=== PATIENT | female | born 1950 | race Caucasian/White ===

== ENCOUNTER 2024-09-06 12:07 | Emergency (ER) | payer OTHER ==
[2024-09-06 12:29] LABS: BASOPHILS ABSOLUTE AUTO 0.04 K/uL (0.00-0.10); BASOPHILS PERCENT AUTO 0.5 % (0.1-1.3); EOSINOPHILS ABSOLUTE AUTO 0.22 K/uL (0.00-0.40); EOSINOPHILS PERCENT AUTO 2.7 % (0.0-5.4); IMMATURE GRAN ABSOLUTE AUTO 0.03 K/uL (0.00-0.23); IMMATURE GRAN PERCENT AUTO 0.4 % (0.0-0.7); LYMPHOCYTES ABSOLUTE AUTO 1.61 K/uL (0.8-3.3); LYMPHOCYTES PERCENT AUTO 20.0 % (11.4-47.7); MONOCYTES ABSOLUTE AUTO 0.68 K/uL (0.20-0.90); MONOCYTES PERCENT AUTO 8.5 % (3.3-12.6); NEUTROPHILS ABSOLUTE AUTO 5.45 K/uL (1.0-7.6); NEUTROPHILS PERCENT AUTO 67.9 % (40.0-78.1); PLATELET COUNT,PLT 210 K/uL (130-375); RED BLOOD CELL COUNT 4.84 M/uL (3.77-5.24); WHITE BLOOD CELL COUNT,WBC 8.0 K/uL (3.2-11.0)
[2024-09-06 12:38] LABS: APPEARANCE,URINE CLOUDY (CLEAR); GLUCOSE,URINE NEGATIVE (NEGATIVE); OCCULT BLOOD,URINE NEGATIVE (NEGATIVE)
[2024-09-06 12:47] LABS: EPITHELIAL CELLS,URINE MANY
[2024-09-06 12:56] LABS: LACTIC ACID 1.4 mmol/L (0.4-2.0)
[2024-09-06 13:02] LABS: A/G RATIO 1.0 (1.2-2.2); ALANINE AMINOTRANSFERASE,ALT 38 U/L (12-78); ASPARTATE AMNIOTRANSFERASE,AST 15 U/L (15-37); BILIRUBIN TOTAL 1.0 mg/dL (0.2-1.0); BLOOD UREA NITROGEN,BUN 14 mg/dL (7-18); CARBON DIOXIDE,CO2 26 mmol/L (21-32); CHLORIDE,CL 103 mmol/L (100-108); CREATININE 1.0 mg/dL (0.6-1.0); EST CRCL DRUG DOSING (CG) 46.20 mL/min; ESTIMATED GFR 59 mL/min (>60); GLUCOSE RANDOM 106 mg/dL (74-106); POTASSIUM,K 4.1 mmol/L (3.6-5.2); PROTEIN TOTAL,TP 7.7 g/dL (6.4-8.2); SODIUM,NA 138 mmol/L (140-148)
== END 2024-09-06 16:19 | disposition home or self-care (01) ==
LOC: JP.ED 12:07
DX: R55 Syncope and collapse (principal); I10 Essential (primary) hypertension; E86.0 Dehydration; Z88.8 Allergy status to other drugs, medicaments and biological substances; Z79.82 Long term (current) use of aspirin; Z79.899 Other long term (current) drug therapy
CPT/HCPCS: 36415; 70450; 80053; 80307; 81001; 83605; 85025; 86140; 87086; 93005; 96360; 99285; J7030